=== PATIENT | female | born 1945 ===

== ENCOUNTER 2019-03-29 09:35 | Emergency (ER) | payer OTHER ==
[~2019-03-29] VITALS: Ht 165.1 cm; Wt 78.9 kg
[~2019-03-29 09:35] MED LIST: DIOVAN160 M1
[2019-03-29] MEDS ORDERED: LOSARTAN-HCTZ1 EAC2 (09:45)
[2019-03-29] MEDS ORDERED: CATAFLAN 50MG (09:46)
== END 2019-03-29 13:57 | disposition home or self-care (01) ==
LOC: ER 09:35
DX: S00.83XA Contusion of other part of head, initial encounter (principal); R55 Syncope and collapse; W18.09XA Striking against other object with subsequent fall, initial encounter; Y93.89 Activity, other specified; Y92.018 Other place in single-family (private) house as the place of occurrence of the external cause; Y99.8 Other external cause status